=== PATIENT | female | born 1990 | race Caucasian/White ===

== ENCOUNTER 2020-04-04 15:33 | Day surgery (SDC) | payer SELFPAY ==
[2020-04-04] VITALS (13 sets, daily range): BP systolic 100–124; BP diastolic 58–96; PULSE 72–90; RESP 17–20; TEMP 36.5–37.1; O2SAT 92–100; BMI 24.7
--- NOTE | 2020-04-04 | XR_ITS ---
WS: [id number] INTRAOPERATIVE TECHNIQUE: 5 Spot fluoroscopic images for intraoperative purposes. FLUOROSCOPY TIME: 346.2 seconds CLINICAL INFORMATION: OR PICS COMPARISON: None. FINDINGS: Intramedullary helen and screw fixation left tibia. Hardware appears in good position. XR/XR tibia fibula LT 2V 21400 IMPRESSION: Images obtained for intraoperative purposes.
--- NOTE | 2020-04-04 | SCC_ITS ---
Procedure Done: Open reduction internal fixation using an intramedullary tibial nail of a comminuted tibial shaft fracture which was open. Debridement of skin and subcutaneous tissue over tibia with irrigation of open fracture. 346.2 seconds of fluoroscopic guidance, for a cumulative dose of 19.73 mGy, was provided to Dr. Barrios by the radiology department. C-arm images of the LEFT tib/fib were saved for the patient's permanent record. [facility]
[2020-04-04] MEDS: morphine 4 mg/mL SDV 1 mL 10 MG IVP (15:51)
--- NOTE | 2020-04-04 16:02 | XRR_ITS ---
PROCEDURE INFORMATION: Exam: XR Left Tibia and Fibula Exam date and time: 04/04/2020 4:17 PM Age: 29 years old Clinical indication: Injury or trauma; Other: Skateboard; Fracture, traumatic; Open fracture, severity classification not provided; Fibula and tibia; Right; Shaft of the fibula; Shaft of the tibia; Injury date: Today TECHNIQUE: Imaging protocol: XR Left tibia and fibula. Views: 2 views. COMPARISON: No relevant prior studies available. FINDINGS: Bones/joints: Examination reveals simple spiral comminuted fractures of the distal diaphysis of the tibia and fibula. There is 12 mm of lateral displacement of the tibia distal fracture fragment and 11 mm of the distal fibula fracture fragment. There is contracture of approximately 13 mm for both fractures. There is approximately 5 mm of anterior displacement of the distal fibula fracture and less than 3 mm of the tibia fracture. There is a minimally displaced spiral fracture neck of the proximal fibula. Soft tissues: Examination taken through splinting material. Anterior soft tissue emphysema visible. Other findings: Please note that the exam is labeled right and the request is labeled left. XR/XR tibia fibula LT 2V 77787 IMPRESSION: Simple comminuted spiral fractures of the distal diaphysis of the tibia and fibula and a simple spiral fracture neck of the proximal fibula as detailed in text above.
--- NOTE | 2020-04-04 16:04 | CTR_ITS ---
PROCEDURE INFORMATION: Exam: CT Cervical Spine Without Contrast Exam date and time: 04/04/2020 4:18 PM Age: 29 years old Clinical indication: Injury or trauma; Blunt trauma; Patient HX: Fall while skateboarding denies loc or neck pain TECHNIQUE: Imaging protocol: Computed tomography images of the cervical spine without contrast. Axial, coronal and sagittal reformatted images were created and reviewed. Radiation optimization: All CT scans at this facility use at least one of these dose optimization techniques: automated exposure control; mA and/or kV adjustment per patient size (includes targeted exams where dose is matched to clinical indication); or iterative reconstruction. COMPARISON: No relevant prior studies available. RADIATION DOSE METRICS: Total DLP (mGy-cm): 480.29 FINDINGS: Bones/joints: Slight reversal of the normal cervical lordosis. No CT evidence of acute fracture, dislocation or subluxation. Alignment anatomic. Vertebral body heights maintained. Discs/Spinal canal/Neural foramina: Intervertebral disc spaces preserved. No significant spinal canal or neural foraminal stenosis. Soft tissues: Grossly unremarkable. Lungs: Grossly unremarkable. CT/CT cervical spin wo con* [id number]: 1[address] No CT evidence of acute cervical spine traumatic injury. 2. Additional findings, as above. Radiation Dose CTDIVOL = (mGy): DLP = 480.29 (mGy-cm)
--- NOTE | 2020-04-04 16:04 | CTR_ITS ---
PROCEDURE INFORMATION: Exam: CT Head Without Contrast Exam date and time: 04/04/2020 4:18 PM Age: 29 years old Clinical indication: Injury or trauma; Blunt trauma (contusions or hematomas); Without loss of consciousness; Patient HX: Fall while skateboarding denies loc or neck pain TECHNIQUE: Imaging protocol: Computed tomography of the head without contrast. Axial, coronal and sagittal reformatted images were created and reviewed. Radiation optimization: All CT scans at this facility use at least one of these dose optimization techniques: automated exposure control; mA and/or kV adjustment per patient size (includes targeted exams where dose is matched to clinical indication); or iterative reconstruction. COMPARISON: No relevant prior studies available. RADIATION DOSE METRICS: Total DLP (mGy-cm): 791.47 FINDINGS: Brain: No CT evidence of acute intracranial hemorrhage or acute territorial infarction. No significant mass effect or midline shift. Basal cisterns patent. Cerebral ventricles: Normal in size and configuration. Bones/joints: No acute osseous abnormality. Paranasal sinuses: Unremarkable. No fluid levels. Mastoid air cells: Grossly unremarkable. Soft tissues: Grossly unremarkable. CT/CT head wo con* [id number] IMPRESSION: No CT evidence of acute intracranial pathology. Radiation Dose CTDIVOL = (mGy): DLP = 791.47 (mGy-cm)
[2020-04-04] MEDS: tetanus-dipt-pertussis 0.5 mL SDV IM (16:26)
[2020-04-04] MEDS: ceFAZolin 1,000 MG in sodium chloride 0.9% (plus) 50 ML 100 MG IV (17:07)
[2020-04-04 17:25] LABS: HCG, Serum Qual Negative (Negative)
--- NOTE | 2020-04-04 17:31 | W.ED.EXTPRO ---
HPI - Extremity Problem General: Chief complaint: Extremity Injury, Lower Stated complaint: LEFT TIB/FIB FX S/P SKATING ACCCIDENT Time Seen by Provider: 04/04/20 15:37 Source: patient and EMS Mode of arrival: EMS Limitations: no limitations History of Present Illness: HPI Narrative: 29-year-old female patient who presents to the emergency department following a fall while skating. She was apparently trying to show her son that he did not need to be afraid of skating and unfortunately he was getting she lost her balance and fell. She noticed that there was a piece of bone sticking out of her distal leg. He then called for an ambulance and she was brought here to be evaluated. In the ambulance she was given 100 mcg of fentanyl as well as 4 mg of Zofran. MD Complaint: extremity pain Location: left and lower extremity Severity scale (1-10): 10 Quality: sharp and constant Radiation: distal Relieving factors: nothing Exacerbating factors: weight bearing and palpation Associated symptoms: Deny arthralgias, chest pain, fever(s), myalgias, rash or short of breath Review of Systems General: Reports: 10 or more systems reviewed and unremarkable except in HPI and below Const: Denies: fever(s) Eyes: Denies: change in vision or blurry vision ENMT: Denies: throat pain, enlarged tonsils, odynophagia, hoarseness, mouth pain or swelling of lips/tongue Card: Denies: chest pain Resp: Denies: dyspnea, productive cough or non-productive cough GI: Denies: abdominal pain, nausea or vomiting : Denies: flank pain, difficulty voiding, dysuria, urinary frequency, urinary urgency or urinary hesitancy Musc: Reports: extremity pain; Denies: neck pain, back pain or extremity swelling Skin/Breast: Reports: other (Open wound distal leg on the left); Denies: rash Neuro: Denies: headache(s), numbness in extremities or weakness in extremities Endo: Denies: polyuria, polydipsia or tired all the time [facility] Female Reproductive History: Date of last menstrual period: 04/03/20 Physical Exam Const: COMMON NORMALS: average body habitus, patient oriented x3, no limitations, healthy appearing, alert and well nourished GENERAL APPEARANCE: in distress HENMT: COMMON NORMALS: normocephalic, atraumatic and moist oral mucous membranes HEAD & SCALP: normocephalic and atraumatic Neck/C-Spine: COMMON NORMALS: full ROM, supple, no meningeal signs, no JVD and No carotid bruits Chest: COMMONS NORMALS: normal inspection of the chest and normal palpation of entire chest wall Resp: COMMON NORMALS: normal respiratory effort, No retractions, No use of accessory muscles, clear to auscultation bilaterally and percussion normal AUSCULTATION: clear to auscultation bilaterally PERCUSSION: percussion normal Cardio: COMMON NORMALS: no JVD, regular rate, regular rhythm, S1 normal heart sound present, S2 normal heart sound present, No gallops present (Cardio), No clicks present (Cardio), No murmurs present (Cardio), No rub (Cardio) and Peripheral pulses 2+ throughout RATE: regular rate RHYTHM: regular rhythm HEART SOUNDS: S1 normal heart sound present and S2 normal heart sound present PERIPHERAL PULSES: Peripheral pulses 2+ throughout GI: COMMON NORMALS: Normal to inspection, nondistended, normoactive bowel sounds present, Soft to palpation, non-tender, No hepatosplenomegaly present, no masses and no bruits PALPATION: Yes Soft to palpation and Yes No hepatosplenomegaly present Extremity: COMMON NORMALS: full ROM, capillary refill normal, no calf tenderness and no pedal edema LEFT LOWER EXTREMITY: Yes lower leg Left lower leg: Yes inspection (5 cm lac distal left leg with tibia sticking out about 3 cm) and Yes neurovascular exam (Dorsalis pedis palpitations 2+. Brisk capillary refill. No paresthesia.) Neuro: COMMON NORMALS: patient oriented x3 SENSORIUM/ORIENTATION: Yes alert MENINGEAL SIGNS: Yes no meningeal signs Skin: COMMON NORMALS: no rashes or lesions noted, no wounds, turgor normal, no jaundice, no petechiae and no mottling GENERAL SKIN EXAM: no rashes or lesions noted and turgor normal Course ED course: Patient who presented to the emergency department with an open tibia fracture. She still had good neurovascular status. Fracture was irrigated thoroughly reduced and splinted in the emergency department. She was taken to the OR for surgical repair. Consultations: Consultation #1: Discussed the patient with Dr. Barrios, orthopedic surgeon. She will take the patient to the OR. Time: 16:09 Vital Signs: Vital signs: Vital Signs Temperature 97.7 F 04/04/20 15:34 Pulse Rate 76 04/04/20 15:44 Respiratory Rate 20 H 04/04/20 17:08 Blood Pressure 116/58 04/04/20 17:08 Pulse Oximetry 96 04/04/20 17:08 MDM - Extremity (Nontraumatic) MDM Narrative: Medical decision making narrative: Patient with an open tib-fib fracture of her left lower extremity. She was stabilized in the emergency department and taking to the operating room for surgical repair. Medical Records: Attestation: I reviewed the patient's medical records. Lab Data: Attestation: I reviewed the patient's lab results. Labs: Lab Results 04/04/20 Range/Units 15:30 HCG, Qual Negative (Negative) Imaging Data^: Xray Ortho: Radiologist's impression: [address] [address] XRay Report Signed Patient: Jazzy Alex #: [id number] : 1990Acct#:[id number] Age/Sex: 29 FADM Date: 04/04/20 [facility] Attending Dr: Ordering Provider/Ordering MD: Estuardo Uriostegui MD, [facility] Date of Service: 04/04/20 Procedure(s): XR tibia fibula LT 2V 55819 Accession Number(s): [id number] Report Number: [id number] PROCEDURE INFORMATION: Exam: XR Left Tibia and Fibula Exam date and time: 04/04/2020 4:17 PM Age: 29 years old Clinical indication: Injury or trauma; Other: Skateboard; Fracture, traumatic; Open fracture, severity classification not provided; Fibula and tibia; Right; Shaft of the fibula; Shaft of the tibia; Injury date: Today TECHNIQUE: Imaging protocol: XR Left tibia and fibula. Views: 2 views. COMPARISON: No relevant prior studies available. FINDINGS: Bones/joints: Examination reveals simple spiral comminuted fractures of the distal diaphysis of the tibia and fibula. There is 12 mm of lateral displacement of the tibia distal fracture fragment and 11 mm of the distal fibula fracture fragment. There is contracture of approximately 13 mm for both fractures. There is approximately 5 mm of anterior displacement of the distal fibula fracture and less than 3 mm of the tibia fracture. There is a minimally displaced spiral fracture neck of the proximal fibula. Soft tissues: Examination taken through splinting material. Anterior soft tissue emphysema visible. Other findings: Please note that the exam is labeled right and the request is labeled left. XR/XR tibia fibula LT 2V 90082 IMPRESSION: Simple comminuted spiral fractures of the distal diaphysis of the tibia and fibula and a simple spiral fracture neck of the proximal fibula as detailed in text above. Dictated By:Henry Cosby Signed By:Henry CosbySignmichelle Date/Time:04/04/201706 DD/ 05 Discharge Plan Discharge Patient Disposition: Admitted As Inpatient Clinical Impression: Open fracture shaft of tibia and fibula Condition: Stable Coding Level of Care Code ED Petrophysicist for [facility] Fwd Exam Comprehensive
--- NOTE | 2020-04-04 17:37 | P.HP_ITS ---
Same Day Surgery H&P Indication for Procedure/HPI DATE OF PROCEDURE: April 04, 2020 CHIEF COMPLAINT/INDICATIONFOR SURGICAL PROCEDURE: Left open tibia and fibular shaft fractures PREOP DIAGNOSIS: Open Left tibia and fibular shaft fractures PLANNED PROCEDRUE: Operation Date: 04/04/20 17:35 Proposed Procedures Open reduction internal fixation left open tibia and fibular fractures with intramedullary nailing of tibia and irrigation and debridement- Lucia Barrios MD This 29-year-old woman was in her usual state of health when she was skateboarding at the [place] [id number] [place] [facility]. Patient fell suffering the above injury which includes a comminuted tibial shaft fracture in the distal third which is open and an associated same level fibula fracture. ROS Recent dental infection for which she is on amoxicillin Medications/Allergies* Home Medications Medication Instructions Recorded Confirmed Type amoxicillin 500 mg PO TID 04/04/20 04/04/20 History buspirone 10 mg PO BID PRN 04/04/20 04/04/20 History cyproheptadine 4 mg PO BEDTIME 04/04/20 04/04/20 History hydroxyzine HCl 25 mg PO Q8H PRN 04/04/20 04/04/20 History naproxen 375 mg PO BID PRN 04/04/20 04/04/20 History olanzapine 5 mg PO DAILY 04/04/20 04/04/20 History sertraline 50 mg PO BEDTIME 04/04/20 04/04/20 History Allergies/Adverse Reactions Allergy/AdvReac Type Severity Reaction Status Date / Time No Known Allergies Allergy Verified 04/04/20 15:44 Pertinent History/Comorbid Conditions* None Pertinent Exam Findings alert, oriented x 3, clear to auscultation bilaterally, regular rate & rhythm, operative site marked and procedure specific exam findings (Patient is in a splint on her left lower extremity. There is some bleeding) Pertinent Data PERTINENT DATA: X-rays are reviewed and demonstrate a distal third tibial shaft fracture with associated same level fibula fracture. There is comminution of both, but greater of the tibia. Related Problem List Diagnoses (1) Open fracture shaft of tibia and fibula: Qualifiers: Encounter type: initial encounter Open fracture type: open type I or II Laterality: left Qualified Code(s): S82.202B - Unspecified fracture of shaft of left tibia, initial encounter for open fracture type I or II; S82.402B - Unspecified fracture of shaft of left fibula, initial encounter for open fracture type I or II Recommendations Surgery/Procedure today (Plan as above) Coding Level of Care Code Acute Puttier for [facility] Fwd Diagnoses Open fracture shaft of tibia and fibula S82.202B; S82.402B Encounter type: initial encounter Open fracture type: open type I or II Laterality: left
[2020-04-04] MEDS: sodium chloride 0.9% 1,000 ML 30 ML IV (17:40)
--- NOTE | 2020-04-04 17:49 | P.OP_ITS ---
Operative Report Date of procedure: April 04, 2020 Pre-op Diagnosis: Open Left comminuteted tibia and fibular shaft fractures Post-op diagnosis: same Post-op Findings: Comminution at fracture site. Proximal and same level as tibia fibula fracture. Procedure Done: Open reduction internal fixation using an intramedullary tibial nail of a comminuted tibial shaft fracture which was open. Debridement of skin and subcutaneous tissue over tibia with irrigation of open fracture. Implants: The T2 tibial nail system size 9 x 315 mm with a proximal locking fully threaded 5 mm x 37.5 mm screw and 2 distal fully threaded locking screws size 5 mm x 30 mm and 5 mm x 37.5 mm. Additionally, a T2N +10 mm was placed. Specimens removed/disposition: None Pathology: none sent Surgeon: Lucia Barrios Medical Office Rep: [facility] OR technicians Anesthesia: General (Per LMA with regional block) Estimated blood loss (mL): 40 Tourniquet time (min): 93 Tourniquet time: At 250 mmHg IV fluids (mL): 800 Urine output (mL): 0 Complications: None Findings: Open fracture directly over the tibial fracture with comminution of the tibial fracture. Comminution of the same level fibular fracture and of the proximal fibula fracture as well. Condition: stable Disposition: PACU (Then home with family) Brief History: This 29-year-old woman was in her usual state of health when she was at the [facility] in [place]. She was skateboarding, and she fell suffering the above injury. She presented to the emergency department with bone sticking through the skin . This was reduced by the emergency room physician. The patient was then brought directly from the emergency department to the OR for definitive treatment. Risks and complications were discussed with her. Initial plan was that she would be discharged home. Procedure: Patient was seen in the preoperative holding area, an H&P was accomplished, and consents were signed after discussion with the patient. Patient was brought to the operating theater and placed on the operating room table. After undergoing adequate general anesthesia per LMA, the patient's left lower extremity was prepped and draped in usual fashion utilizing DuraPrep. The leg was draped free. Fluoroscopy was used throughout the surgical procedure. We did have a tourniquet high on the left lower extremity. This was elevated to 250 mmHg and total tourniquet time was 93 minutes. A surgical pause was performed. At the time of the surgical pause we identified the site and side of surgery as well as the patient's identity and availability of equipment. We also confirmed appropriate administration of IV antibiotics vancomycin 1 g which have been preceded by Ancef 1 g in the emergency department. Following the above, an incision was extending the area of the patient's open fracture. This allowed us access to the comminuted fracture. We were able to open the fracture and copiously irrigated with 3 L of fluid containing vancomycin. The wound and the fracture were both very clean. There was no evidence of dirt, debris, or cloth. Irrigation was accomplished, it was suctioned dry. A reduction was accomplished and held with a Buchanan clamp. The Herbie clamp remained throughout the surgical procedure while we were able to place the intramedullary helen. Attention was then directed to the area of the knee. An incision was made slightly medial to the patient's patellar tendon. We then retracted soft tissues to place the entry point for the intramedullary nail in the middle in an AP direction. We also monitor position in the lateral x-ray. Guidewire was pl aced and a entry reamer was placed over this. The short guidewire was then removed and a long ball-tipped guidewire was passed. We are to pass this guidewire through the fracture and down to the ankle. We placed this as distal as possible secondary to the distal nature of the tibia fracture. We monitored fracture position during passing of the guidewire as well as reaming. We measured the length of the nail, and we chose the 315 mm T2 Bolton tibial nail. This was 9 mm in diameter after we had reamed. Reaming was accomplished and even the 9 mm reamer was tight. We then reamed to a 10.5 mm to allow placement of the 9 mm nail. The 9 mm nail was then passed over the guidewire without difficulty. The guidewire was removed but the jogging system was left in position. 1 screw was placed proximally from lateral to medial. This was accomplished through the jig and was accomplished without difficulty. We then used a perfect [place] technique distally. We placed 1 screw in an anterior posterior direction and one screw in a lateral to medial direction without difficulty. The screws were placed in position was confirmed in AP and lateral planes on fluoroscopy. Fracture reduction was held throughout placement of the screws. The Herbie clamp was then removed. Fluoroscopy was then used to visualize the fracture proximally and distally in both AP and lateral planes. We confirmed screws were through the nail. They were in good position and of appropriate lengths. Therefore, attention was directed to closure. Throughout the surgical procedure and at the conclusion of the procedure we did use fluoroscopy. The incision over the area of the open fracture was closed with a combination of 2-0 Vicryl in the subcutaneous tissues. The skin was closed with skin gabriella. Proximally, the wound was closed with a combination of 0 Vicryl deep and 2-0 Monocryl in the subcutaneous tissues. The skin was then closed with skin gabriella. Sterile dressing was placed consisting of Xeroform gauze, 4 x 4's, sterile soft roll and an Barak wrap. The patient was placed in a Cam Walker boot and is to remain nonweightbearing. The procedure was well tolerated without complication. Tourniquet time was 93 minutes at 250 mmHg. The patient will be discharged home to follow-up in my office. Associated Problem List Diagnoses (1) Open fracture shaft of tibia and fibula: Qualifiers: Encounter type: initial encounter Laterality: left Open fracture type: open type I or II Qualified Code(s): S82.202B - Unspecified fracture of shaft of left tibia, initial encounter for open fracture type I or II; S82.402B - Unspecified fracture of shaft of left fibula, initial encounter for open fracture type I or II
--- NOTE | 2020-04-04 17:55 | ANES.PREANE2 ---
Pre-Anesthetic Assessment Pre-Anesthetic Assessment: Height/Weight: Height 1.6 m Weight 63.503 kg Temp Pulse Resp BP Pulse Ox 97.7 F 76 20 H 116/58 96 04/04/20 15:34 04/04/20 15:44 04/04/20 17:08 04/04/20 17:08 04/04/20 17:08 Preop Diagnosis: Open Left tibia and fibular shaft fractures Proposed Procedure: Operation Date: 04/04/20 17:35 Proposed Procedures p ORIF Ankle(Left) - Lucia Barrios MD Familial anesthetic complications: None Was Beta Deisi taken within 24 hours: N/A Last intake: Intake NPO > 8 hrs Last Liquid Date 04/04/20 Last Liquid Time 11:00 Last Solid Date 04/03/20 Last Solid Time 19:00 Social: Social History: Tobacco Exam: Pre-Anes Outpt Exam: alert, oriented x 3, clear to auscultation bilaterally and regular rate & rhythm Airway: Cervical ROM: WNL MP: 2 Additional comments: Patient has tooth infection for which she is on antibiotics Anesthetic Plan: ASA status: 1 Anesthesia: General and Regional (specify below) Other: Patient agreed to proceed with elective block, educated on risk of nerve damage and infection given pre-exist tooth infection and presence of open fracture. Risk of > 500 ml blood loss (7ml/kg in children): No PFSH Anesthesia Female Reproductive History: Date of last menstrual period: 04/03/20 Data Anesthesia Other Labs: Laboratory Results - last 48 hr 04/04/20 15:30 HCG, Qual Negative Cardiac Studies: No Data to Display
[2020-04-04] MEDS: CELEcoxib 200 mg Capsule 400 MG PO (18:00)
--- NOTE | 2020-04-04 18:00 | ANES.PROC ---
Anesthesia Procedures Procedure/Date: 04/04/20 Nerve Block ^: Nerve Block 1: Main Anesthesia: general anesthesia Time Out Performed: No Consent: requested by attending/covering physician, from patient, risks and benefits reviewed and patient agrees to proceed Nerve block location: popliteal (L) Anesthesia monitors applied: pulse oximetry, EKG, BP cuff and oxygen Nerve block position: supine Anesthetic Used: ropivicaine 0.5% Amount of anesthesia used (mL): 30 Ultrasound used to: recognize landmarks Nerve Stimulator Used?: No Interscalene/Femoral BLK: 4 stimuplex 21 g needle used for position and inplane approach, visualize local anesthetic spread and no vascular puncture identified Injection: neg aspiration of heme and paresthesia +/- (No parasthesias) Patient Tolerated Procedure: well and no complications Complications: none
--- NOTE | 2020-04-04 18:23 | SUR.PHASEI ---
1735 PT TO PACU BAY 12 AWAKE ALERT TALKATIVE, NEEDING TO VOID AND HAVING PAIN TO LT LOWER LEG DRESSING D/I WITH SOME DRAINAGE NOTED TO INNER ANKLE AREA DISTAL FOOT PINK WARM DR HARRINGTON AND DR DILLARD AT BEDSIDE PT TO BE PREPPED FOR ADDUCTOR CANAL BLOCK TO LT LEG PT VERBALLY AGREES TO THIS AND DR DILLARD IN ROOM AND TALKED WITH PT ABOUT THE OR PROCEDURE PT VERBALLY AGREES TO ALL PROCEDURS PT PLACED ON BED [place], 1740 PT VOIDS APPROX 500ML CLEAR YELLOW URINE, PT PREPPED FOR BLOCK SEE MEDS GIVEN BY JAROD MANCUSO IN ROOM ASSISTING DR HARRINGTON. 1755 NS UP ORDERED 1800 OFIRMEV STARTED AND CELEXCOXIB 400MG PO GIVEN ORDERED. PT AWAKE ALERT TALKING AND TAKING SELFIES ON PHONE.
[2020-04-04] MEDS: vancomycin 1,000 MG in sodium chloride 0.9% 250 ML 250 MG IV (18:30)
[2020-04-04] MEDS: ceFAZolin 1,000 mg SDV (18:47)
[2020-04-04] MEDS: vancomycin 1,000 MG SDV 1000 MG (18:48)
[2020-04-04] MEDS: HYDROcodone-acetaminophen 5-325 mg Tablet 1 TAB PO (21:59)
--- NOTE | 2020-04-04 22:14 | SUR.PHASEII ---
2129 PT AWAKE ALERT ON RA SATS 97% MEGAN FROM PT HERE, PT EATING JELLO AND SIPS OF [place] ORDER FOR PAIN MED RECIEVED 2199 PT TEACHING DONE AND PT GIVEN PAIN MED PT ALERT TOLERATES WALKING WITH CRUTCHES WELL HOME HERE WITH CRUTCHES PT FAMILY CALLED PT TO GO HOME, JUST WAITING FOR RIDE 2214 PT DRESSED AND IV DCD INTACT.
--- NOTE | 2020-04-04 22:40 | SUR.PHASEII ---
1302 PT TO ER TO DISCHARGE WITH BROTHER PER WHEEL CHAIR PT HOME WITH 2 TABS NORCO5/325 TO TAKE EVERY 4 HOURS NEEDED FOR PAIN PER DR DILLARD'S ORDER, THE PHARMACIES ARE NOW CLOSED. 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 PT TO RETURN TOMORROW WITH HER PAYMENT FOR CRUTCHES.
== END 2020-04-04 22:38 | disposition home or self-care (01) ==
LOC: ER 17:08 → OR 17:17
PROVIDERS: Emergency Provider Family Medicine; Visit Provider Specialist
PROC: (CPT 27759; 2020-04-04 17:15)
DX: S82.202B Unspecified fracture of shaft of left tibia, initial encounter for open fracture type I or II (principal); S82.402B Unspecified fracture of shaft of left fibula, initial encounter for open fracture type I or II; W19.XXXA Unspecified fall, initial encounter; Y93.51 Activity, roller skating (inline) and skateboarding; Y92.830 Public park as the place of occurrence of the external cause
CPT/HCPCS: 27759; 12345; 27752; 64450; 70450; 72125; 73590; 76000; 84703; 90471; 90715; 96365; 96375; 97116; 97161; 99281; C1713; J0131; J0690; J1100; J1885; J2250; J2270; J2405; J2704; J2795; J3010; J3370; J3490; J7030; J7050